=== PATIENT | male | born 1985 | race Caucasian/White ===

== ENCOUNTER 2022-02-16 15:09 | Emergency (ER) | payer BC, OTHER ==
[2022-02-16 15:15] VITALS: BP 127/71; PULSE 79; RESP 18; TEMP 98; BMI 27.2
[2022-02-16] MEDS ORDERED: ACETAMINOPHEN 500 MG TABLET (FP) PO ONE (16:52)
[2022-02-16] MEDS ORDERED: ACETAMINOPHEN 500 MG TABLET (FP) ONE (17:07)
== END 2022-02-16 18:30 | disposition home or self-care (01) ==
LOC: JERFT 15:09
DX: S80.211A Abrasion, right knee, initial encounter (principal); S90.511A Abrasion, right ankle, initial encounter; M79.604 Pain in right leg; V23.4XXA Motorcycle driver injured in collision with car, pick-up truck or van in traffic accident, initial encounter
CPT/HCPCS: 73560-TC-RT-FY; 73590-TC-RT-FY; 73610-TC-RT-FY; 73630-TC-RT-FY; 99285-25